=== PATIENT | male | born 1965 | race Caucasian/White ===

== ENCOUNTER 2018-05-19 11:42 | Inpatient (IN) | payer BC, OTHER ==
--- NOTE | 2018-05-19 12:09 | ED PDOC ---
HPI: Back Time Seen by Provider: 05/19/18 12:07 Chief Complaint (Provider): back pain History Per: Patient Additional Complaint(s): 52-year-old male presents to emergency department for evaluation of persistent lower back pain. Patient was diagnosed with lumbar discitis and osteomyelitis several weeks ago and was started on IV antibiotics via PICC line. He presents today with worsening pain. Patient last received dose of IV antibiotics this morning. He rates current pain as a 9 out of 10, worse with movement, better with rest. He denies bowel or bladder dysfunction. Patient takes gabapentin daily but this has provided minimal relief of ongoing pain. PMD: Dr. Alberto Tran Past Medical History Reviewed: Historical Data, Nursing Documentation, Vital Signs - Medical History PMH: Back Problems - Surgical History Surgical History: Appendectomy - Family History Family History: States: No Known Family Hx - Living Arrangements Living Arrangements: With Family - Social History Current smoker - smoking cessation education provided: No Alcohol: None Drugs: Denies - Home Medications Home Medications: Ambulatory Orders Medication Instructions Recorded Calcium Carbonate [Caltrate] 1 tab PO BID 05/19/18 Docusate [Colace] 100 mg PO TID 05/19/18 Gabapentin [Neurontin] 300 mg PO Q12 05/19/18 Glucosa Saab 2Kcl/Chondroitin Saab 1 cap PO BID 05/19/18 [Glucosamine & Chondroitin Cap] Lactobacillus Combination No.8 1 cap PO DAILY 05/19/18 [Adult Probiotic] Multivitamin [Multi-Vitamin Daily] 1 tab PO DAILY 05/19/18 Joffre-3 Fatty Acids [Joffre-3] 1 cap PO BID 05/19/18 Vit A/Vit C/Vit E/Zinc/Copper 1 cap PO DAILY 05/19/18 [Preservision Areds Softgel] Vitamin B Complex [Super B-50 1 cap PO DAILY 05/19/18 Complex] - Allergies Allergies/Adverse Reactions: Allergies Allergy/AdvReac Type Severity Reaction Status Date / Time No Known Allergies Allergy Verified 05/19/18 12:27 Review of Systems ROS Statement: Except As Marked, All Systems Reviewed And Found Negative Constitutional: Negative for: Fever, Chills Cardiovascular: Negative for: Chest Pain Respiratory: Negative for: Cough Gastrointestinal: Negative for: Nausea, Vomiting Genitourinary Male: Negative for: Dysuria, Frequency, Incontinence, Hematuria Musculoskeletal: Positive for: Back Pain Physical Exam - Reviewed Nursing Documentation Reviewed: Yes Vital Signs Reviewed: Yes - Physical Exam Appears: Positive for: Well, Non-toxic, No Acute Distress Skin: Positive for: Normal Color. Negative for: Rash Eye Exam: Positive for: Normal appearance Cardiovascular/Chest: Positive for: Regular Rate, Rhythm Respiratory: Positive for: Normal Breath Sounds. Negative for: Respiratory Distress Gastrointestinal/Abdominal: Positive for: Soft. Negative for: Tenderness Back: Positive for: Vertebral Tenderness (moderate tenderness to midline of lumbar spine) Extremity: Positive for: Normal ROM Neurologic/Psych: Positive for: Alert, Oriented, Gait - Laboratory Results Result Diagrams: 05/19/18 13:16 05/19/18 13:16 - ECG Interpretation Of ECG: Normal sinus rhythm 85 beats per minute, no acute finding, reviewed by PA in ED attending O2 Sat by Pulse Oximetry: 98 Pulse Ox Interpretation: Normal - Other Rad CXR X-Ray: Interpreted by Me, Viewed By Me X-Ray Interpretation: no acute finding Medical Decision Making Medical Decision Makin52 year old with back pain and lumbar discitis Plan: CBC CMP UA EKG CXR IVF IV toradol Patient with intractable back pain, lumbar discitis and osteomyelitis. Plan is to admit patient for intractable pain and obtain neurosurgery consult with Dr. Fitzpatrick. Patient agrees with plan. Dr. Triana to admit patient. Disposition - Clinical Impression Clinical Impression: Intractable back pain, Osteomyelitis of lumbar vertebra, Lumbar discitis - Patient ED Disposition Is Patient to be Admitted: Yes - Disposition Disposition Time: 17:28 Condition: FAIR - Pt Status Changed To: Hospital Disposition Of: Inpatient - Admit Certification Admit to Inpatient:: After my assessment, the patient will require hospitalization for at least two midnights. This is because of the severity of symptoms shown, intensity of services needed, and/or the medical risk in this patient being treated as an outpatient. - POA Present On Arrival: None Results - Lab Results Lab Results: 05/19/18 05/19/18 05/19/18 13:58 13:48 13:45 WBC RBC Hgb Hct MCV MCH MCHC RDW Plt Count MPV Neut % (Auto) Lymph % (Auto) [place] % (Auto) Eos % (Auto) Baso % (Auto) Neut # (Auto) Lymph # (Auto) [place] # (Auto) Eos # (Auto) Baso # (Auto) PT INR APTT Sodium Potassium Chloride Carbon Dioxide Anion Gap BUN Creatinine Est GFR ( Amer) Est GFR (Non-Af Amer) Random Glucose Calcium Total Bilirubin AST ALT Alkaline Phosphatase Total Protein Albumin Globulin Albumin/Globulin Ratio Urine Color Straw Urine Clarity Clear Urine pH 7.0 Ur Specific [place] 1.008 Urine Protein 30 Urine Glucose (UA) Neg Urine Ketones Negative Urine Blood Negative Urine Nitrate Negative Urine Bilirubin Negative Urine Urobilinogen 0.2-1.0 Ur Leukocyte Esterase Neg Urine RBC (Auto) 2 Urine Microscopic WBC < 1 Urine Bacteria Few H Blood Type A POSITIVE Blood Type Confirm A POSITIVE Antibody Screen Negative BBK History Checked No verified bt 05/19/18 05/19/18 05/19/18 13:16 13:16 13:16 WBC 8.2 RBC 4.83 Hgb 14.1 Hct 42.8 MCV 88.5 MCH 29.2 MCHC 33.0 RDW 14.9 H Plt Count 234 MPV 8.7 Neut % (Auto) 75.0 Lymph % (Auto) 11.8 L [place] % (Auto) 10.7 H Eos % (Auto) 1.8 Baso % (Auto) 0.7 Neut # (Auto) 6.1 Lymph # (Auto) 1.0 [place] # (Auto) 0.9 H Eos # (Auto) 0.1 Baso # (Auto) 0.1 PT 13.8 H INR 1.2 APTT 40.1 H Sodium 139 Potassium 4.1 Chloride 101 Carbon Dioxide 28 Anion Gap 14 BUN 12 Creatinine 0.8 Est GFR ( Amer) > 60 Est GFR (Non-Af Amer) > 60 Random Glucose 87 Calcium 9.0 Total Bilirubin 0.7 AST 43 ALT 47 Alkaline Phosphatase 85 Total Protein 7.4 Albumin 4.2 Globulin 3.2 Albumin/Globulin Ratio 1.3 Urine Color Urine Clarity Urine pH Ur Specific [place] Urine Protein Urine Glucose (UA) Urine Ketones Urine Blood Urine Nitrate Urine Bilirubin Urine Urobilinogen Ur Leukocyte Esterase Urine RBC (Auto) Urine Microscopic WBC Urine Bacteria Blood Type Blood Type Confirm Antibody Screen BBK History Checked
[2018-05-19 12:14] VITALS: BMI 23.1
[2018-05-19] MEDS ORDERED: Sodium Chloride 0.9% 1,000 ML IV STA (12:15)
[2018-05-19 13:21] LABS: BASO # 0.1 K/uL (0.0-0.2); BASO % 0.7 % (0.0-2.0); EOS # 0.1 K/uL (0.0-0.7); EOS % 1.8 % (0.0-4.0); HEMOGLOBIN 14.1 g/dL (12.0-18.0); LYMPH % 11.8 % (20.0-40.0); MEAN CELL VOLUME 88.5 fl (80.0-94.0); MEAN CORPUSCULAR HEMOGLOBIN 29.2 pg (27.0-31.0); MEAN PLATELET VOLUME 8.7 fl (7.2-11.7); MONO # 0.9 K/uL (0.0-0.8); MONO % 10.7 % (0.0-10.0); NEUT # 6.1 K/uL (1.8-7.0); NRBC % 0.1 % (0.0-0.0); RBC 4.83 Mil/uL (4.40-5.90); RED CELL DISTRIBUTION WIDTH 14.9 % (11.5-14.5); WHITE BLOOD COUNT 8.2 K/uL (4.8-10.8)
[2018-05-19 13:36] LABS: ALB/GLOB RATIO 1.3 (1.0-2.1); ALBUMIN 4.2 g/dL (3.5-5.0); ALT/SGPT 47 U/L (21-72); AST/SGOT 43 U/L (17-59); BLOOD UREA NITROGEN 12 mg/dl (9-20); GFR AFRICAN-AMERICAN > 60; GFR NON-AFRICAN AMERICAN > 60
[2018-05-19 13:39] LABS: INR 1.2 (0.9-1.2); PARTIAL THROMBOPLASTIN TIME 40.1 Seconds (25.6-37.1); PROTHROMBIN TIME 13.8 Seconds (9.8-13.1)
--- NOTE | 2018-05-19 13:56 | RAD ---
HISTORY: clearance COMPARISON: No prior. FINDINGS: LUNGS: No active pulmonary disease. PLEURA: No significant pleural effusion identified, no pneumothorax apparent. CARDIOVASCULAR: No radiographic findings to suggest acute or significant cardiovascular disease. OSSEOUS STRUCTURES: No significant abnormalities. VISUALIZED UPPER ABDOMEN: Normal. OTHER FINDINGS: None. IMPRESSION: No active disease.
[2018-05-19 14:03] LABS: URINE BACTERIA FEW (<OCC); URINE BILIRUBIN NEGATIVE (NEGATIVE); URINE BLOOD NEGATIVE (NEGATIVE); URINE CLARITY CLEAR (Clear); URINE COLOR STRAW (YELLOW); URINE GLUCOSE (UA) NEG (Normal); URINE LEUKOCYTE ESTERASE NEG Leu/uL (Negative); URINE PROTEIN 30 mg/dL (NEGATIVE); URINE UROBILINOGEN 0.2-1.0 mg/dL (0.2-1.0)
--- NOTE | 2018-05-19 18:47 | CP.PCM.HP ---
<Minerva Jarvis - Last Filed: 05/19/18 20:05> History of Present Illness - History of Present Illness History of Present Illness: 52 yr old M presented to ED with complaint of persistent lumbar pain in the setting of osteomyelitis, epidural abscess, lumbar discitis. No other significant PMHx. Patient reports lumbar pain is 9/10, exacerbated by movement; alleviated by rest and gabapentin. Physical therapy did not provide relief. Patient has a PICC line and has been receiving IV antibiotics, ID is Dr. Head. Denies urinary or fecal incontinence. Denies need of assistive device to ambulate. Denies fevers, chills, weight loss, chest pain or SOB. PMD: Dr. Alberto Tran ID: Dr. Head PMHx: denies SurgHx: appendicitis, diverticulitis, nasal abscess drainage, tonsillectomy FMHx: noncontributory SocHx: denies tobacco/Etoh or drugs Medications: Gabapentin 300mg PO BID, OTC anti-inflammatory medications Allergies: NKDA ED course: BP 146/89 mmHg, HR 81, Resp 18, O2 sat 100% on room air, Temp 97.6F -EKG: NSR at 85 bpm -CXR: no active disease -CBC within normal limits -PT 13.8, INR 1.2, PTT 40.1 -CMP within normal limits -Urinalysis negative -ED treatment: Toradol 30mg IVP once, 1L NS bolus, Present on Admission - Present on Admission Any Indicators Present on Admission: No History of DVT/PE: No History of Uncontrolled Diabetes: No Urinary Catheter: No Decubitus Ulcer Present: No History Surgical Site Infection Following: None Review of Systems - Constitutional Constitutional: absent: Chills, Weakness - EENT Eyes: absent: Change in Vision Nose/Mouth/Throat: absent: Nasal Congestion, Nasal Discharge - Cardiovascular Cardiovascular: absent: Chest Pain, Dyspnea, Pedal Edema, Rapid Heart Rate - Respiratory Respiratory: absent: Cough, Dyspnea, Hemoptysis - Gastrointestinal Gastrointestinal: absent: Abdominal Pain, Diarrhea, Nausea, Vomiting - Genitourinary Genitourinary: absent: Change in Urinary Stream, Difficulty Urinating, Dysuria - Musculoskeletal Musculoskeletal: Back Pain. absent: Neck Pain, Stiffness - Integumentary Integumentary: absent: Bleeding Lesions - Neurological Neurological: absent: Confusion, Disequilibrium, Dizziness - Psychiatric Psychiatric: absent: Homicidal Ideation, Suicidal Ideation - Endocrine Endocrine: absent: Polydipsia, Polyphagia, Polyuria - Hematologic/Lymphatic Hematologic: absent: Easy Bleeding, Easy Bruising Past Patient History - Infectious Disease Hx of Infectious Diseases: None - Past Medical History & Family History Past Medical History?: No - Past Social History Smoking Status: Never Smoked Alcohol: None Drugs: Denies - CARDIAC Hx Cardiac Disorders: No - NEUROLOGICAL Hx Neurological Disorder: No - HEENT Hx Blind: No - RENAL Hx Chronic Kidney Disease: No - ENDOCRINE/METABOLIC Hx Endocrine Disorders: No - HEMATOLOGICAL/ONCOLOGICAL Hx Blood Disorders: No - INTEGUMENTARY Hx Dermatological Problems: No - MUSCULOSKELETAL/RHEUMATOLOGICAL Hx Back Pain: Yes Hx Falls: No Hx Osteomyelitis: Yes - GASTROINTESTINAL Hx Diverticulitis: Yes (HAD SURGRY 20YRS AGO) - GENITOURINARY/GYNECOLOGICAL Hx Genitourinary Disorders: No - PSYCHIATRIC Hx Psychophysiologic Disorder: No Hx Substance Use: No - SURGICAL HISTORY Hx Appendectomy: Yes - ANESTHESIA Hx Anesthesia: Yes Hx Anesthesia Reactions: No Hx Malignant Hyperthermia: No Meds Allergies/Adverse Reactions: Allergies Allergy/AdvReac Type Severity Reaction Status Date / Time No Known Allergies Allergy Verified 05/19/18 12:27 Physical Exam - Constitutional Appears: No Acute Distress - Head Exam Head Exam: ATRAUMATIC, NORMOCEPHALIC - Eye Exam Eye Exam: EOMI, PERRL - ENT Exam ENT Exam: Mucous Membranes Moist - Neck Exam Neck exam: Positive for: Full Rom. Negative for: Lymphadenopathy - Respiratory Exam Respiratory Exam: Clear to Auscultation Bilateral, NORMAL BREATHING PATTERN - Cardiovascular Exam Cardiovascular Exam: REGULAR RHYTHM, +S1, +S2 - GI/Abdominal Exam GI & Abdominal Exam: Normal Bowel Sounds, Soft. absent: Tenderness - Extremities Exam Extremities exam: Positive for: full ROM (PICC line in RUE, dressing clean/dry/ intact), normal capillary refill, pedal pulses present. Negative for: calf tenderness, pedal edema - Back Exam Back exam: tenderness (lumbar spine). absent: CVA tenderness (L), CVA tenderness (R) - Neurological Exam Neurological exam: Alert, CN II-XII Intact, Oriented x3 - Psychiatric Exam Psychiatric exam: Normal Affect, Normal Mood - Skin Skin Exam: Dry, Intact, Normal Color, Warm Results - Vital Signs Recent Vital Signs: Last Vital Signs Temp 97.9 F 05/19/18 16:59 Pulse 63 05/19/18 16:59 Resp 18 05/19/18 16:59 BP 141/91 H 05/19/18 16:59 Pulse Ox 98 05/19/18 17:30 - Labs Result Diagrams: 05/19/18 13:16 05/19/18 13:16 Labs: Laboratory Results - last 24 hr 05/19/18 05/19/18 05/19/18 13:16 13:16 13:16 WBC 8.2 RBC 4.83 Hgb 14.1 Hct 42.8 MCV 88.5 MCH 29.2 MCHC 33.0 RDW 14.9 H Plt Count 234 MPV 8.7 Neut % (Auto) 75.0 Lymph % (Auto) 11.8 L [place] % (Auto) 10.7 H Eos % (Auto) 1.8 Baso % (Auto) 0.7 Neut # (Auto) 6.1 Lymph # (Auto) 1.0 [place] # (Auto) 0.9 H Eos # (Auto) 0.1 Baso # (Auto) 0.1 PT 13.8 H INR 1.2 APTT 40.1 H Sodium 139 Potassium 4.1 Chloride 101 Carbon Dioxide 28 Anion Gap 14 BUN 12 Creatinine 0.8 Est GFR ( Amer) > 60 Est GFR (Non-Af Amer) > 60 Random Glucose 87 Calcium 9.0 Total Bilirubin 0.7 AST 43 ALT 47 Alkaline Phosphatase 85 Total Protein 7.4 Albumin 4.2 Globulin 3.2 Albumin/Globulin Ratio 1.3 Urine Color Urine Clarity Urine pH Ur Specific [place] Urine Protein Urine Glucose (UA) Urine Ketones Urine Blood Urine Nitrate Urine Bilirubin Urine Urobilinogen Ur Leukocyte Esterase Urine RBC (Auto) Urine Microscopic WBC Urine Bacteria Blood Type Blood Type Confirm Antibody Screen BBK History Checked 05/19/18 05/19/18 05/19/18 13:45 13:48 13:58 WBC RBC Hgb Hct MCV MCH MCHC RDW Plt Count MPV Neut % (Auto) Lymph % (Auto) [place] % (Auto) Eos % (Auto) Baso % (Auto) Neut # (Auto) Lymph # (Auto) [place] # (Auto) Eos # (Auto) Baso # (Auto) PT INR APTT Sodium Potassium Chloride Carbon Dioxide Anion Gap BUN Creatinine Est GFR ( Amer) Est GFR (Non-Af Amer) Random Glucose Calcium Total Bilirubin AST ALT Alkaline Phosphatase Total Protein Albumin Globulin Albumin/Globulin Ratio Urine Color Straw Urine Clarity Clear Urine pH 7.0 Ur Specific [place] 1.008 Urine Protein 30 Urine Glucose (UA) Neg Urine Ketones Negative Urine Blood Negative Urine Nitrate Negative Urine Bilirubin Negative Urine Urobilinogen 0.2-1.0 Ur Leukocyte Esterase Neg Urine RBC (Auto) 2 Urine Microscopic WBC < 1 Urine Bacteria Few H Blood Type A POSITIVE Blood Type Confirm A POSITIVE Antibody Screen Negative BBK History Checked No verified bt Assessment & Plan - Assessment and Plan (Free Text) Assessment: 52 yr old M admitted for intractable lumbar pain in the setting of osteomyelitis , epidural abscess, lumbar discitis. No other significant PMHx. 1. Intractable/Severe lumbar pain -acute on chronic, persistent -has PICC line for tx of osteomyelitis, epidural abscess, lumbar discitis -admit to med/surg -Neurosurgery -Dr. Fitzpatrick: will follow recommendations, likely for OR tomorrow -ID: Dr. Head: will follow recommendations -NPO after midnight -pain management 2. DVT prophylaxis -SCD's for now - Date & Time Date: 05/19/18 Time: 15:00 <Toni Triana - Last Filed: 05/19/18 21:36> Results - Vital Signs Recent Vital Signs: Last Vital Signs Temp 97.9 F 05/19/18 16:59 Pulse 63 05/19/18 16:59 Resp 18 05/19/18 16:59 BP 141/91 H 05/19/18 16:59 Pulse Ox 98 05/19/18 17:30 - Labs Result Diagrams: 05/19/18 13:16 05/19/18 13:16 Labs: Laboratory Results - last 24 hr 05/19/18 05/19/18 05/19/18 13:16 13:16 13:16 WBC 8.2 RBC 4.83 Hgb 14.1 Hct 42.8 MCV 88.5 MCH 29.2 MCHC 33.0 RDW 14.9 H Plt Count 234 MPV 8.7 Neut % (Auto) 75.0 Lymph % (Auto) 11.8 L [place] % (Auto) 10.7 H Eos % (Auto) 1.8 Baso % (Auto) 0.7 Neut # (Auto) 6.1 Lymph # (Auto) 1.0 [place] # (Auto) 0.9 H Eos # (Auto) 0.1 Baso # (Auto) 0.1 PT 13.8 H INR 1.2 APTT 40.1 H Sodium 139 Potassium 4.1 Chloride 101 Carbon Dioxide 28 Anion Gap 14 BUN 12 Creatinine 0.8 Est GFR ( Amer) > 60 Est GFR (Non-Af Amer) > 60 Random Glucose 87 Calcium 9.0 Total Bilirubin 0.7 AST 43 ALT 47 Alkaline Phosphatase 85 Total Protein 7.4 Albumin 4.2 Globulin 3.2 Albumin/Globulin Ratio 1.3 Urine Color Urine Clarity Urine pH Ur Specific [place] Urine Protein Urine Glucose (UA) Urine Ketones Urine Blood Urine Nitrate Urine Bilirubin Urine Urobilinogen Ur Leukocyte Esterase Urine RBC (Auto) Urine Microscopic WBC Urine Bacteria Blood Type Blood Type Confirm Antibody Screen BBK History Checked 05/19/18 05/19/18 05/19/18 13:45 13:48 13:58 WBC RBC Hgb Hct MCV MCH MCHC RDW Plt Count MPV Neut % (Auto) Lymph % (Auto) [place] % (Auto) Eos % (Auto) Baso % (Auto) Neut # (Auto) Lymph # (Auto) [place] # (Auto) Eos # (Auto) Baso # (Auto) PT INR APTT Sodium Potassium Chloride Carbon Dioxide Anion Gap BUN Creatinine Est GFR ( Amer) Est GFR (Non-Af Amer) Random Glucose Calcium Total Bilirubin AST ALT Alkaline Phosphatase Total Protein Albumin Globulin Albumin/Globulin Ratio Urine Color Straw Urine Clarity Clear Urine pH 7.0 Ur Specific [place] 1.008 Urine Protein 30 Urine Glucose (UA) Neg Urine Ketones Negative Urine Blood Negative Urine Nitrate Negative Urine Bilirubin Negative Urine Urobilinogen 0.2-1.0 Ur Leukocyte Esterase Neg Urine RBC (Auto) 2 Urine Microscopic WBC < 1 Urine Bacteria Few H Blood Type A POSITIVE Blood Type Confirm A POSITIVE Antibody Screen Negative BBK History Checked No verified bt Assessment & Plan - Assessment and Plan (Free Text) Plan: Discussed with DR Matheus lee plans of care and mgt. Toni Triana M.D.
[2018-05-20] MEDS ORDERED: Propofol 10 mg/ml Inj (20 ML) ONE (07:05)
[2018-05-20] MEDS ORDERED: Midazolam 2 MG/2 ML VIAL ONE (07:05)
[2018-05-20] MEDS ORDERED: Succinylcholine 200 mg/10 ml Inj IV ONE (07:08)
[2018-05-20] MEDS ORDERED: Lidocaine 4% MPF 5 ML IJ ONE (07:10)
[2018-05-20] MEDS ORDERED: Dexamethasone 4 mg/1 ml ONE ×2 (07:10→08:42)
[2018-05-20] MEDS ORDERED: Bupivacaine HCl 0.25% PF (30 ml) Inj ONE (07:13)
[2018-05-20] MEDS ORDERED: Absorbable Gelatin Sponge Size 12-7 ONE (07:13)
[2018-05-20] MEDS ORDERED: ceFAZolin IV 2 gm in Dextrose 2 GM/50 ML BAG IVPB ONE (07:13)
[2018-05-20] MEDS ORDERED: GELATIN SPONGE,ABSORB/PORCINE 1 EACH SPONGE TP ONE (07:14)
[2018-05-20] MEDS ORDERED: Rocuronium 10 mg/ml (5 ml) ONE ×2 (07:14→07:59)
[2018-05-20] MEDS ORDERED: Thrombin Topical 5,000 Int Units Spray Kit ONE (07:14)
[2018-05-20] MEDS ORDERED: ePHEDrine 50 mg/ml Inj ONE (07:15)
[2018-05-20] MEDS ORDERED: Phenylephrine 10 mg/ml Inj ONE (07:17)
--- NOTE | 2018-05-20 07:26 | CP.PCM.CON ---
History of Present Illness - History of Present Illness History of Present Illness: 52 y/o male with PMhx of L2-L3 osteomyelitis, discitis with epidural abscess s/ p treatment with IV abx. s/p 7 weeks of abx treatment who presents with chronic LBP and radiculopathy. Although the patient admits to improvement of his acute back pain as a consequence of his osteo/discitis, he now has chronic LBP and is exacerbated with movement and position transfers. He has failed conservative management such as pain meds and PT. At this time he does not use an assistive device but his ambulation ability is limited. Denies urinary or bowel incontinence. Past Patient History - Infectious Disease Hx of Infectious Diseases: None - Past Medical History & Family History Past Medical History?: No - Past Social History Smoking Status: Never Smoked Alcohol: None Drugs: Denies - CARDIAC Hx Cardiac Disorders: No - NEUROLOGICAL Hx Neurological Disorder: No - HEENT Hx Blind: No - RENAL Hx Chronic Kidney Disease: No - ENDOCRINE/METABOLIC Hx Endocrine Disorders: No - HEMATOLOGICAL/ONCOLOGICAL Hx Blood Disorders: No - INTEGUMENTARY Hx Dermatological Problems: No - MUSCULOSKELETAL/RHEUMATOLOGICAL Hx Back Pain: Yes Hx Falls: No Hx Osteomyelitis: Yes - GASTROINTESTINAL Hx Diverticulitis: Yes (HAD SURGRY 20YRS AGO) - GENITOURINARY/GYNECOLOGICAL Hx Genitourinary Disorders: No - PSYCHIATRIC Hx Psychophysiologic Disorder: No Hx Substance Use: No - SURGICAL HISTORY Hx Appendectomy: Yes - ANESTHESIA Hx Anesthesia: Yes Hx Anesthesia Reactions: No Hx Malignant Hyperthermia: No Meds Allergies/Adverse Reactions: Allergies Allergy/AdvReac Type Severity Reaction Status Date / Time No Known Allergies Allergy Verified 05/19/18 12:27 - Medications Medications: Current Medications Gabapentin (Neurontin) 300 mg PO BID [place] Ketorolac Tromethamine (Toradol) 30 mg IVP Q6 PRN PRN Reason: Pain, severe (8-10) Physical Exam - Back Exam Back exam: paraspinal tenderness (~ L2-L4 area tenderness ( mild) ) - Neurological Exam Additional comments: well appearing A&Ox 3 CN intact MURRAY Motor 5/5 throughout, however IP is 4/5 limited by pain sensation intact to LT BL pain ilicited with bed transfers. neg clonus positive SLR BL Results - Vital Signs Recent Vital Signs: Last Vital Signs Temp 97.5 F L 05/20/18 00:03 Pulse 83 05/20/18 00:03 Resp 19 05/20/18 00:03 BP 136/72 05/20/18 00:03 Pulse Ox 99 05/20/18 00:03 - Labs Result Diagrams: 05/19/18 13:16 05/19/18 13:16 Labs: Laboratory Results - last 24 hr 05/19/18 05/19/18 05/19/18 13:16 13:16 13:16 WBC 8.2 RBC 4.83 Hgb 14.1 Hct 42.8 MCV 88.5 MCH 29.2 MCHC 33.0 RDW 14.9 H Plt Count 234 MPV 8.7 Neut % (Auto) 75.0 Lymph % (Auto) 11.8 L [place] % (Auto) 10.7 H Eos % (Auto) 1.8 Baso % (Auto) 0.7 Neut # (Auto) 6.1 Lymph # (Auto) 1.0 [place] # (Auto) 0.9 H Eos # (Auto) 0.1 Baso # (Auto) 0.1 PT 13.8 H INR 1.2 APTT 40.1 H Sodium 139 Potassium 4.1 Chloride 101 Carbon Dioxide 28 Anion Gap 14 BUN 12 Creatinine 0.8 Est GFR ( Amer) > 60 Est GFR (Non-Af Amer) > 60 Random Glucose 87 Calcium 9.0 Total Bilirubin 0.7 AST 43 ALT 47 Alkaline Phosphatase 85 Total Protein 7.4 Albumin 4.2 Globulin 3.2 Albumin/Globulin Ratio 1.3 Urine Color Urine Clarity Urine pH Ur Specific [place] Urine Protein Urine Glucose (UA) Urine Ketones Urine Blood Urine Nitrate Urine Bilirubin Urine Urobilinogen Ur Leukocyte Esterase Urine RBC (Auto) Urine Microscopic WBC Urine Bacteria Blood Type Blood Type Confirm Antibody Screen BBK History Checked 05/19/18 05/19/18 05/19/18 13:45 13:48 13:58 WBC RBC Hgb Hct MCV MCH MCHC RDW Plt Count MPV Neut % (Auto) Lymph % (Auto) [place] % (Auto) Eos % (Auto) Baso % (Auto) Neut # (Auto) Lymph # (Auto) [place] # (Auto) Eos # (Auto) Baso # (Auto) PT INR APTT Sodium Potassium Chloride Carbon Dioxide Anion Gap BUN Creatinine Est GFR ( Amer) Est GFR (Non-Af Amer) Random Glucose Calcium Total Bilirubin AST ALT Alkaline Phosphatase Total Protein Albumin Globulin Albumin/Globulin Ratio Urine Color Straw Urine Clarity Clear Urine pH 7.0 Ur Specific [place] 1.008 Urine Protein 30 Urine Glucose (UA) Neg Urine Ketones Negative Urine Blood Negative Urine Nitrate Negative Urine Bilirubin Negative Urine Urobilinogen 0.2-1.0 Ur Leukocyte Esterase Neg Urine RBC (Auto) 2 Urine Microscopic WBC < 1 Urine Bacteria Few H Blood Type A POSITIVE Blood Type Confirm A POSITIVE Antibody Screen Negative BBK History Checked No verified bt Assessment & Plan - Assessment and Plan (Free Text) Assessment: chronic intractable LBP Plan: With Dr. Fitzpatrick, Surgical options reviewed with patient and recommended L2-L3 PSF Risks, benefits and alternatives explained. Risks such as infection, hemorrhage, CSF leak, weakness, numbness, failure of surgery and/or need for further surgery explained. Patient's questioned answered and expressed understanding and wishes to proceed.
[2018-05-20] MEDS ORDERED: Lactated Ringer's 1,000 ML IV ONE ×2 (07:38→09:00)
[2018-05-20] MEDS ORDERED: HEMOSTATIC MATRIX 10 ML DIS.NEEDLE TOP ONE (08:05)
[2018-05-20] MEDS ORDERED: Neostigmine 1:1000 (1 mg/ml) Inj ONE (08:32)
[2018-05-20] MEDS ORDERED: Thrombin Topical 5,000 Int Units Spray Kit TOP ONE (08:45)
[2018-05-20] MEDS ORDERED: Absorbable Gelatin Sponge Size 12-7 TP ONE (08:45)
[2018-05-20] MEDS ORDERED: Bupivacaine 0.25% Inj(30mL) IJ ONE ×2 (09:06→09:30)
--- NOTE | 2018-05-20 09:39 | CARD ---
APPROVED REPORT EKG Measurement Heart [id number] <Conclusion> Normal sinus rhythm with sinus arrhythmia Possible Left atrial enlargement Low voltage QRS Borderline ECG
--- NOTE | 2018-05-20 09:48 | PCM.SURG1 ---
Surgeon's Initial Post Op Note - Surgeon's Notes Surgeon: Dr. Frantz Fitzpatrick MD Vacuum Cleaner Operator: Vaughn DESIR , Patrice DESIR Type of Anesthesia: General Endo Pre-Operative Diagnosis: L2-L3 osteo/discitis s/p abx tx course with chronic LBP. lumbar stenosis, disc collapse Operative Findings: as above Post-Operative Diagnosis: same Operation Performed: L2-L3 posterior instrumented fusion, distraction and decomressive laminectomy . Specimen/Specimens Removed: L2-L3 lamina, ligamentum flavum. Cultures +/-, AFB sent from epidural space Estimated Blood Loss: EBL {In ML}: 70 Blood Products Given: N/A Drains Used: Stephen Gutierrez (x2) Date of Surgery/Procedure: 05/20/18 Time of Surgery/Procedure: 10:00
[2018-05-20] MEDS ORDERED: Sodium Chloride 0.9% 1,000 ML IV PRN (09:56)
[2018-05-20] MEDS ORDERED: HYDROmorphone 0.5 mg/0.5 ml ISec IVP PRN (10:04)
[2018-05-20] MEDS ORDERED: oxyCODONE 5 mg Immediate Release Tab PO PRN (10:07)
[2018-05-20] MEDS: HYDROmorphone 0.5 mg/0.5 ml ISec IVP PRN ×3 (10:30→15:05)
--- NOTE | 2018-05-20 10:31 | OP ---
PROCEDURE DATE: 05/20/2018 PREOPERATIVE DIAGNOSES: Lumbar spine diskitis, osteomyelitis, epidural abscess, spondylolisthesis and spinal instability at L2-L3. POSTOPERATIVE DIAGNOSES: Lumbar spine diskitis, osteomyelitis, epidural abscess, spondylolisthesis and spinal instability at L2-L3. PROCEDURES: L2-L3 lumbar laminectomy, biopsy of the disk space and L2-L3 pedicle screw fixation and instrumentation using a spinal element system, L2-L3 posterolateral fusion. Fluoroscopy has been used. SURGEON: Frantz Fitzpatrick MD MUSEUM PREPARATOR: KARLEE Chavira. Vaughn Rosario stayed throughout the case from the beginning to the end, helped me perform the surgery. DESCRIPTION OF PROCEDURE: The patient was brought to the operating room, anesthetized with general endotracheal anesthesia, and placed in a prone position on a Stephen table. Care was taken to protect all the pressure points. Back of the lumbar area thoroughly prepped and draped in same sterile manner after marking the skin incisions for lumbar laminectomy and fusion at L2-L3. After prepping and draping area, skin has been incised, bleeding skin had been controlled with bipolar general passenger agent. Using a Bovie general passenger agent, paraspinal muscles have been detached, attachments of spinous process and lamina of L2-L3. At this point, identification of levels has been done with the help of fluoroscopy by using a traditional landmark, point of entry has been noted for the pedicle screws at L2 and L3. Initially K-wire, later a drill has been used in order to enter the pedicles of L2-L3. Polyaxial titanium screws of spinal elements have been placed. Titanium rods have been placed and cap nuts have been used in order to secure them. Slight traction has been applied and all this has been done with the help of fluoroscopy. After this, under magnification, the lamina of the spinous process of L2-L3 had been removed. By using a high speed drill, lamina of L2-L3 have been drilled to actual thickness. By using a fine Kerrison punch, thinned out the lamina, medial part of facets and ligamentum flavum has been removed decompressing this area. At this point, disk space has been examined and part of the disk space biopsied, sent for histopathological examination, and cultures have been taken. After that, the lateral aspect of the facet joint and transverse process have been decorticated and demineralized bone placed in the area achieving a posterolateral fusion. Hemostasis was best achieved. Stephen drain was placed in the wound and brought out through a separate stab neck skin incision. Muscles and fascia were closed with 1 Vicryl, subcutaneous tissue with 3-0 Vicryl, and skin has been Vicryl stitches. The patient tolerated the procedure. After procedure, mobilized to the recovery room in stabilized neurological condition. Frantz Fitzpatrick MD
--- NOTE | 2018-05-20 11:51 | CP.PCM.CON ---
History of Present Illness - History of Present Illness History of Present Illness: 52 yr old M presented to ED with complaint of persistent lumbar pain in the setting of osteomyelitis, epidural abscess, lumbar discitis. He was diagnosed with this at [facility] 2 months ago. IR could not drain abscess and Neurosurg recommended conservative rx He was treated with Vibativ and Rosephin for 8 weeks all cultures were neg as was PPD, TB Quantiferon and echo No other significant PMHx. Patient reports lumbar pain is 9/10, exacerbated by movement; alleviated by rest and gabapentin. Physical therapy did not provide relief. Patient has a PICC line and has been receiving IV antibiotics PMHx: colitis SurgHx: appendicitis, diverticulitis, nasal abscess drainage, tonsillectomy FMHx: noncontributory SocHx: denies tobacco/Etoh or drugs Medications: Gabapentin 300mg PO BID, OTC anti-inflammatory medications Allergies: NKDA Review of Systems - Review of Systems All systems: reviewed and no additional remarkable complaints except - Constitutional Constitutional: As Per HPI - EENT Eyes: absent: As Per HPI, Blind Spots, Blurred Vision, Change in Vision, Decreased Night Vision, Diplopia, Discharge, Dry Eye, Exophthalmos, Floaters, Irritation, Itchy Eyes, Loss of Peripheral Vision, Pain, Photophobia, Requires Corrective Lenses, Sees Flashes, Spots in Vision, Tunnel Vision, Other Visual Disturbances, Loss of Vision, Other Ears: absent: As Per HPI, Decreased Hearing, Ear Discharge, Ear Pain, Tinnitus, Abnormal Hearing, Disequilibrium, Dizziness, Other Nose/Mouth/Throat: absent: As Per HPI, Epistaxis, Nasal Congestion, Nasal Discharge, Nasal Obstruction, Nasal Trauma, Nose Pain, Post Nasal Drip, Sinus Pain, Sinus Pressure, Bleeding Gums, Change in Voice, Dental Pain, Dry Mouth, Dysphagia, Halitosis, Hoarsness, Lip Swelling, Mouth Lesions, Mouth Pain, Odynophagia, Sore Throat, Throat Swelling, Tongue Swelling, Facial Pain, Neck Pain, Neck Mass, Other - Cardiovascular Cardiovascular: absent: As Per HPI, Acrocyanosis, Chest Pain, Chest Pain at Rest , Chest Pain with Activity, Claudication, Diaphoresis, Dyspnea, Dyspnea on Exertion, Edema, Irregular Heart Rhythm, Pain Radiating to Arm/Neck/Jaw, Leg Edema, Leg Ulcers, Lightheadedness, Orthopnea, Palpitations, Paroxysmal Nocturnal Dyspnea, Pedal Edema, Radiating Pain, Rapid Heart Rate, Slow Heart Rate, Syncope, Other - Respiratory Respiratory: absent: As Per HPI, Cough, Dyspnea, Hemoptysis, Dyspnea on Exertion , Wheezing, Snoring, Stridor, Pain on Inspiration, Chest Congestion, Excessive Mucous Production, Change in Mucous Color, Pain with Coughing, Other - Gastrointestinal Gastrointestinal: absent: As Per HPI, Abdominal Pain, Belching, Bloating, Change in Bowel Habits, Change in Stool Character, Coffee Ground Emesis, Constipation, Cramping, Diarrhea, Dyspepsia, Dysphagia, Early Satiety, Excessive Flatus, Fecal Incontinence, Heartburn, Hematemesis, Hematochezia, Loose Stools, Melena, Nausea, Odynophagia, Temesmus, Vomiting, Other - Genitourinary Genitourinary: absent: As Per HPI, Change in Urinary Stream, Difficulty Urinating, Dysuria, Flank Pain, Hematuria, Pyuria, Nocturia, Urinary Incontinence, Urinary Frequency, Urinary Hesitance, Urinary Urgency, Voiding Freq/Small Amts, Freq UTI, Hx Renal/Bladder Calculi, Hx /Renal Surgery, Bladder Distension, Other - Musculoskeletal Musculoskeletal: As Per HPI - Integumentary Integumentary: absent: As Per HPI, Acne, Alopecia, Bleeding Lesions, Change in Hair, Change in Nails, Change in Pigmentation, Changing Lesions, Dry Skin, Erythema, Furuncle, Hirsutism, Lesions, New Lesions, Non-Healing Lesions, Photosensitivity, Pruritus, Rash, Skin Pain, Skin Ulcer, Sores, Striae, Swelling , Unusual Bruising, Wounds, Jaundice, Other - Neurological Neurological: As Per HPI - Psychiatric Psychiatric: absent: As Per HPI, Abnormal Sleep Pattern, Anhedonia, Anxiety, Auditory Hallucinations, Behavioral Changes, Change in Appetite, Change in Libido, Confusion, Depression, Difficulty Concentrating, Hallucinations, Homicidal Ideation, Hopelessness, Irritability, Memory Loss, Mood Swings, Panic Attacks, Paranoia, Suicidal Ideation, Visual Hallucinations, Tactile Hallucinations, Other - Endocrine Endocrine: absent: As Per HPI, Change in Body Appearance, Change in Libido, Cold Intolorance, Deepening of Voice, Excessive Sweating, Fatigue, Flushing, Heat Intolorance, Increase in Ring/Shoe/Hat Size, Palpitations, Polydipsia, Polyphagia, Polyuria, Other - Hematologic/Lymphatic Hematologic: absent: As Per HPI, Easy Bleeding, Easy Bruising, Lymphadenopathy, Other Past Patient History - Infectious Disease Hx of Infectious Diseases: None - Past Medical History & Family History Past Medical History?: No - Past Social History Smoking Status: Never Smoked Alcohol: None Drugs: Denies - CARDIAC Hx Cardiac Disorders: No - NEUROLOGICAL Hx Neurological Disorder: No - HEENT Hx Blind: No - RENAL Hx Chronic Kidney Disease: No - ENDOCRINE/METABOLIC Hx Endocrine Disorders: No - HEMATOLOGICAL/ONCOLOGICAL Hx Blood Disorders: No - INTEGUMENTARY Hx Dermatological Problems: No - MUSCULOSKELETAL/RHEUMATOLOGICAL Hx Back Pain: Yes Hx Falls: No Hx Osteomyelitis: Yes - GASTROINTESTINAL Hx Diverticulitis: Yes (HAD SURGRY 20YRS AGO) - GENITOURINARY/GYNECOLOGICAL Hx Genitourinary Disorders: No - PSYCHIATRIC Hx Psychophysiologic Disorder: No Hx Substance Use: No - SURGICAL HISTORY Hx Appendectomy: Yes - ANESTHESIA Hx Anesthesia: Yes Hx Anesthesia Reactions: No Hx Malignant Hyperthermia: No Meds Allergies/Adverse Reactions: Allergies Allergy/AdvReac Type Severity Reaction Status Date / Time No Known Allergies Allergy Verified 05/19/18 12:27 - Medications Medications: Current Medications Acetaminophen (Tylenol 325mg Tab) 975 mg PO Q6 [facility] Cyclobenzaprine HCl (Flexeril) 5 mg PO TID [facility] Docusate Sodium (Colace) 100 mg PO BID [facility] Gabapentin (Neurontin) 300 mg PO BID [facility] Last Admin: 05/20/18 08:45 Dose: Not Given Hydromorphone HCl (Dilaudid) 0.5 mg IVP Q15M PRN PRN Reason: Pain, moderate (4-7) Stop: 05/21/18 09:57 Last Admin: 05/20/18 10:35 Dose: 0.5 mg Hydromorphone HCl (Dilaudid) 0.5 mg IVP Q6 PRN PRN Reason: Pain, severe (8-10) Sodium Chloride (Sodium Chloride 0.9%) 1,000 mls @ 100 mls/hr IV .Q10H PRN PRN Reason: Hypotension Oxycodone HCl (Oxycodone Immediate Release Tab) 10 mg PO Q4 PRN PRN Reason: Pain, moderate (4-7) Oxycodone HCl (Oxycontin Extended Release Tab) 10 mg PO Q12 [facility] Stop: 05/23/18 21:01 Sennosides (Senokot Tab) 17.2 mg PO HS [facility] Physical Exam - Constitutional Appears: Non-toxic, Chronically Ill - Head Exam Head Exam: NORMOCEPHALIC - Eye Exam Eye Exam: Scleral icterus - ENT Exam ENT Exam: Mucous Membranes Dry - Neck Exam Neck exam: Negative for: Lymphadenopathy - Respiratory Exam Respiratory Exam: Decreased Breath Sounds, Clear to Auscultation Bilateral - Cardiovascular Exam Cardiovascular Exam: REGULAR RHYTHM, +S1, +S2 - GI/Abdominal Exam GI & Abdominal Exam: Diminished Bowel Sounds, Soft. absent: Tenderness - Rectal Exam Rectal Exam: Deferred - Exam Exam: NORMAL INSPECTION - Extremities Exam Extremities exam: Positive for: pedal pulses present. Negative for: pedal edema - Back Exam Back exam: absent: CVA tenderness (L), CVA tenderness (R), paraspinal tenderness - Neurological Exam Neurological exam: Alert, CN II-XII Intact, Oriented x3, Reflexes Normal - Psychiatric Exam Psychiatric exam: Normal Mood - Skin Skin Exam: Dry Results - Vital Signs Recent Vital Signs: Last Vital Signs Temp 97.3 F L 05/20/18 10:20 Pulse 79 05/20/18 11:35 Resp 18 05/20/18 11:35 BP 136/86 05/20/18 11:35 Pulse Ox 100 05/20/18 11:35 - Labs Result Diagrams: 05/19/18 13:16 05/19/18 13:16 Labs: Laboratory Results - last 24 hr 05/19/18 05/19/18 05/19/18 13:16 13:16 13:16 WBC 8.2 RBC 4.83 Hgb 14.1 Hct 42.8 MCV 88.5 MCH 29.2 MCHC 33.0 RDW 14.9 H Plt Count 234 MPV 8.7 Neut % (Auto) 75.0 Lymph % (Auto) 11.8 L Steele % (Auto) 10.7 H Eos % (Auto) 1.8 Baso % (Auto) 0.7 Neut # (Auto) 6.1 Lymph # (Auto) 1.0 Steele # (Auto) 0.9 H Eos # (Auto) 0.1 Baso # (Auto) 0.1 PT 13.8 H INR 1.2 APTT 40.1 H Sodium 139 Potassium 4.1 Chloride 101 Carbon Dioxide 28 Anion Gap 14 BUN 12 Creatinine 0.8 Est GFR ( Amer) > 60 Est GFR (Non-Af Amer) > 60 Random Glucose 87 Calcium 9.0 Total Bilirubin 0.7 AST 43 ALT 47 Alkaline Phosphatase 85 Total Protein 7.4 Albumin 4.2 Globulin 3.2 Albumin/Globulin Ratio 1.3 Urine Color Urine Clarity Urine pH Ur Specific Montgomery Urine Protein Urine Glucose (UA) Urine Ketones Urine Blood Urine Nitrate Urine Bilirubin Urine Urobilinogen Ur Leukocyte Esterase Urine RBC (Auto) Urine Microscopic WBC Urine Bacteria Blood Type Blood Type Confirm Antibody Screen BBK History Checked 05/19/18 05/19/18 05/19/18 13:45 13:48 13:58 WBC RBC Hgb Hct MCV MCH MCHC RDW Plt Count MPV Neut % (Auto) Lymph % (Auto) Steele % (Auto) Eos % (Auto) Baso % (Auto) Neut # (Auto) Lymph # (Auto) Steele # (Auto) Eos # (Auto) Baso # (Auto) PT INR APTT Sodium Potassium Chloride Carbon Dioxide Anion Gap BUN Creatinine Est GFR ( Amer) Est GFR (Non-Af Amer) Random Glucose Calcium Total Bilirubin AST ALT Alkaline Phosphatase Total Protein Albumin Globulin Albumin/Globulin Ratio Urine Color Straw Urine Clarity Clear Urine pH 7.0 Ur Specific Montgomery 1.008 Urine Protein 30 Urine Glucose (UA) Neg Urine Ketones Negative Urine Blood Negative Urine Nitrate Negative Urine Bilirubin Negative Urine Urobilinogen 0.2-1.0 Ur Leukocyte Esterase Neg Urine RBC (Auto) 2 Urine Microscopic WBC < 1 Urine Bacteria Few H Blood Type A POSITIVE Blood Type Confirm A POSITIVE Antibody Screen Negative BBK History Checked No verified bt Assessment & Plan (1) Intractable back pain Status: Acute (2) Lumbar discitis Status: Acute (3) Osteomyelitis of lumbar vertebra Status: Acute - Assessment and Plan (Free Text) Assessment: 52 yo male with diskitis- failed out pt rx with Vanco then Vibativ and Rocephin cultures sent from OR s/p lumbar fusion will cont IV antibiotics and await culture reprts
--- NOTE | 2018-05-20 12:06 | CP.PCM.PN ---
Subjective - Date & Time of Evaluation Date of Evaluation: 05/20/18 Time of Evaluation: 10:00 - Subjective Subjective: Patient seen and examined at bedside in recovery with Dr. Triana. Patient is POD # 0 s/p lumbar fusion, decompression laminectomy. Tolerated procedure well. Objective - Vital Signs/Intake and Output Vital Signs (last 24 hours): Temp Pulse Resp BP Pulse Ox 97.3 F L 79 18 136/86 100 05/20/18 10:20 05/20/18 11:35 05/20/18 11:35 05/20/18 11:35 05/20/18 11:35 Intake and Output: 05/20/18 05/20/18 06:59 18:59 Intake Total 1400 Balance 1400 - Medications Medications: Current Medications Acetaminophen (Tylenol 325mg Tab) 975 mg PO Q6 [facility] Cyclobenzaprine HCl (Flexeril) 5 mg PO TID [facility] Docusate Sodium (Colace) 100 mg PO BID [facility] Gabapentin (Neurontin) 300 mg PO BID [facility] Last Admin: 05/20/18 08:45 Dose: Not Given Hydromorphone HCl (Dilaudid) 0.5 mg IVP Q15M PRN PRN Reason: Pain, moderate (4-7) Stop: 05/21/18 09:57 Last Admin: 05/20/18 10:35 Dose: 0.5 mg Hydromorphone HCl (Dilaudid) 0.5 mg IVP Q6 PRN PRN Reason: Pain, severe (8-10) Sodium Chloride (Sodium Chloride 0.9%) 1,000 mls @ 100 mls/hr IV .Q10H PRN PRN Reason: Hypotension Meropenem 1 gm/ Sodium (Chloride) 100 mls @ 100 mls/hr IVPB Q8 [facility] PRN Reason: Protocol Vancomycin HCl 1 gm/ Sodium (Chloride) 250 mls @ 166.667 mls/hr IVPB Q12 [facility] PRN Reason: Protocol Oxycodone HCl (Oxycodone Immediate Release Tab) 10 mg PO Q4 PRN PRN Reason: Pain, moderate (4-7) Oxycodone HCl (Oxycontin Extended Release Tab) 10 mg PO Q12 [facility] Stop: 05/23/18 21:01 Sennosides (Senokot Tab) 17.2 mg PO HS [facility] - Labs Labs: 05/19/18 13:16 05/19/18 13:16 PT 13.8 Seconds (9.8-13.1) H 05/19/18 13:16 INR 1.2 (0.9-1.2) 05/19/18 13:16 APTT 40.1 Seconds (25.6-37.1) H 05/19/18 13:16 - Constitutional Appears: No Acute Distress - ENT Exam ENT Exam: Mucous Membranes Moist - Respiratory Exam Respiratory Exam: NORMAL BREATHING PATTERN - Cardiovascular Exam Cardiovascular Exam: REGULAR RHYTHM, +S1, +S2 - GI/Abdominal Exam GI & Abdominal Exam: Normal Bowel Sounds - Back Exam Additional comments: [address] - Neurological Exam Neurological Exam: absent: Awake (somnolent s/p surgery) - Skin Skin Exam: Dry, Warm Assessment and Plan - Assessment and Plan (Free Text) Assessment: 52 yr old M is POD # 0 s/p L2-L3 posterior lumbar fusion, decompression laminectomy admitted for intractable lumbar pain in the setting of osteomyelitis , epidural abscess, lumbar discitis. No other significant PMHx. Plan: -pain management -Neurosurgery -Dr. Fitzpatrick: will follow recommendations: will request TLSO brace -has PICC line for tx of osteomyelitis, epidural abscess, lumbar discitis -ID: Dr. Head: will follow recommendations: Meropenem 1 gm Q8 IV, Vancomycin 1gm Q12 IV -advance diet as tolerated -pain management -patient needs IV antibiotics until may 28, if discharged prior may follow up at [facility] for continued treatment (was on Telavancin 750mg IV QD , Rocephin 2gm IV QD)
[2018-05-20] MEDS ORDERED: Meropenem 1 GM in Sodium Chloride 0.9% 100 ML IVPB SCH (12:15)
--- NOTE | 2018-05-20 12:55 | RAD ---
PROCEDURE: HISTORY: As Above COMPARISON: None TECHNIQUE: Total fluoroscopic time utilized during the procedure: 27.9 seconds. Total dose 5.63 mGy cm squared FINDINGS: Submitted images from the current procedure: 1 Please refer to the physician's notes performing the procedure. IMPRESSION: Less than 1 hour fluoroscopic time utilized during performance of the procedure
[2018-05-20] MEDS: Meropenem 1 GM in Sodium Chloride 0.9% 100 ML IVPB SCH (21:30)
[2018-05-20] MEDS: oxyCODONE 10 mg ER Tab (oxyCONTIN) PO SCH (22:55)
[2018-05-21] MEDS: Meropenem 1 GM in Sodium Chloride 0.9% 100 ML IVPB SCH ×3 (05:46→20:06)
[2018-05-21 09:12] LABS: HEMOGLOBIN 13.4 g/dL (12.0-18.0); MEAN CELL VOLUME 88.7 fl (80.0-94.0); MEAN CORPUSCULAR HEMOGLOBIN 29.1 pg (27.0-31.0); MEAN CORPUSCULAR HGB CONC 32.8 g/dL (33.0-37.0); RBC 4.6 Mil/uL (4.40-5.90); RED CELL DISTRIBUTION WIDTH 14.8 % (11.5-14.5); WHITE BLOOD COUNT 11.3 K/uL (4.8-10.8)
[2018-05-21 09:28] LABS: BLOOD UREA NITROGEN 8 mg/dl (9-20); CALCIUM 8.9 mg/dL (8.4-10.2); GFR AFRICAN-AMERICAN > 60; GFR NON-AFRICAN AMERICAN > 60
[2018-05-21] MEDS: oxyCODONE 10 mg ER Tab (oxyCONTIN) PO SCH ×2 (09:30→21:37)
--- NOTE | 2018-05-21 11:56 | CP.PCM.PN ---
Subjective - Date & Time of Evaluation Date of Evaluation: 05/21/18 Time of Evaluation: 10:00 - Subjective Subjective: Patient seen and examined at bedside with Dr. Triana, sitting in chair. Reports moderate discomfort from surgical site/RANDY drain insertion area. Tolerating PO diet, was able to participate in PT. Pain controlled. Objective - Vital Signs/Intake and Output Vital Signs (last 24 hours): Temp Pulse Resp BP Pulse Ox 97.7 F 89 18 159/92 H 98 05/21/18 04:55 05/21/18 11:28 05/21/18 08:00 05/21/18 11:28 05/21/18 11:28 Intake and Output: 05/21/18 05/21/18 06:59 18:59 Intake Total 1050 Output Total 230 Balance 820 - Medications Medications: Current Medications Acetaminophen (Tylenol 325mg Tab) 975 mg PO Q6 [facility] Last Admin: 05/21/18 05:43 Dose: 975 mg Cyclobenzaprine HCl (Flexeril) 5 mg PO TID [facility] Last Admin: 05/21/18 09:32 Dose: 5 mg Docusate Sodium (Colace) 100 mg PO BID [facility] Last Admin: 05/21/18 09:32 Dose: 100 mg Gabapentin (Neurontin) 300 mg PO BID [facility] Last Admin: 05/21/18 09:33 Dose: 300 mg Hydromorphone HCl (Dilaudid) 0.5 mg IVP Q6 PRN PRN Reason: Pain, severe (8-10) Last Admin: 05/21/18 09:31 Dose: 0.5 mg Sodium Chloride (Sodium Chloride 0.9%) 1,000 mls @ 100 mls/hr IV .Q10H PRN PRN Reason: Hypotension Last Admin: 05/20/18 17:47 Dose: 100 mls/hr Vancomycin HCl 1 gm/ Sodium (Chloride) 250 mls @ 166.667 mls/hr IVPB Q12 [facility] PRN Reason: Protocol Last Admin: 05/21/18 10:07 Dose: 166.667 mls/hr Meropenem 1 gm/ Sodium (Chloride) 100 mls @ 100 mls/hr IVPB Q8@0435,1235,2035 [facility] PRN Reason: Protocol Last Admin: 05/21/18 05:46 Dose: 100 mls/hr Oxycodone HCl (Oxycodone Immediate Release Tab) 10 mg PO Q4 PRN PRN Reason: Pain, moderate (4-7) Oxycodone HCl (Oxycontin Extended Release Tab) 10 mg PO Q12 [facility] Stop: 05/23/18 21:01 Last Admin: 05/21/18 09:30 Dose: 10 mg Sennosides (Senokot Tab) 17.2 mg PO HS [facility] Last Admin: 05/20/18 22:47 Dose: 17.2 mg - Labs Labs: 05/21/18 08:30 05/21/18 08:30 PT 13.8 Seconds (9.8-13.1) H 05/19/18 13:16 INR 1.2 (0.9-1.2) 05/19/18 13:16 APTT 40.1 Seconds (25.6-37.1) H 05/19/18 13:16 - Constitutional Appears: No Acute Distress - Head Exam Head Exam: NORMAL INSPECTION - ENT Exam ENT Exam: Mucous Membranes Moist - Neck Exam Neck Exam: Full ROM. absent: Lymphadenopathy - Respiratory Exam Respiratory Exam: NORMAL BREATHING PATTERN - Cardiovascular Exam Cardiovascular Exam: REGULAR RHYTHM - GI/Abdominal Exam GI & Abdominal Exam: Normal Bowel Sounds - Extremities Exam Extremities Exam: Full ROM - Neurological Exam Neurological Exam: Alert, Awake, CN II-XII Intact (grossly intact), Oriented x3 - Psychiatric Exam Psychiatric exam: Normal Affect, Normal Mood - Skin Skin Exam: Dry, Normal Color, Warm Assessment and Plan - Assessment and Plan (Free Text) Assessment: 52 yr old M is POD # 1 s/p L2-L3 posterior lumbar fusion, decompression laminectomy admitted for intractable lumbar pain in the setting of osteomyelitis , epidural abscess, lumbar discitis. No other significant PMHx. 2 x RANDY drains accumulated 455mL in last 24hrs. Plan: -pain management -Neurosurgery -Dr. Fitzpatrick: will follow recommendations: will request TLSO burkece -has PICC line for tx of osteomyelitis, epidural abscess, lumbar discitis -ID: Dr. Head: will follow recommendations: Meropenem 1 gm Q8 IV, Vancomycin 1gm Q12 IV -regular diet -patient needs IV antibiotics until may 28, if discharged prior may follow up at [facility] for continued treatment (was on Telavancin 750mg IV QD , Rocephin 2gm IV QD) -monitor bilateral RANDY drain output
--- NOTE | 2018-05-21 13:18 | CP.PCM.PN ---
Subjective - Date & Time of Evaluation Date of Evaluation: 05/21/18 Time of Evaluation: 10:45 - Subjective Subjective: Patient seen and examined OOB to chair comfortable. Pain is well controlled. He was able to ambulate OOB with PT without difficulties. No acute events overnight. Objective - Vital Signs/Intake and Output Vital Signs (last 24 hours): Temp Pulse Resp BP Pulse Ox 97.3 F L 86 20 119/82 96 05/21/18 12:00 05/21/18 12:00 05/21/18 12:00 05/21/18 12:00 05/21/18 12:00 Intake and Output: 05/21/18 05/21/18 06:59 18:59 Intake Total 1050 Output Total 230 Balance 820 - Medications Medications: Current Medications Acetaminophen (Tylenol 325mg Tab) 975 mg PO Q6 [facility] Last Admin: 05/21/18 12:51 Dose: 975 mg Cyclobenzaprine HCl (Flexeril) 5 mg PO TID [facility] Last Admin: 05/21/18 12:45 Dose: 5 mg Docusate Sodium (Colace) 100 mg PO BID [facility] Last Admin: 05/21/18 09:32 Dose: 100 mg Gabapentin (Neurontin) 300 mg PO BID [facility] Last Admin: 05/21/18 09:33 Dose: 300 mg Hydromorphone HCl (Dilaudid) 0.5 mg IVP Q6 PRN PRN Reason: Pain, severe (8-10) Last Admin: 05/21/18 09:31 Dose: 0.5 mg Sodium Chloride (Sodium Chloride 0.9%) 1,000 mls @ 100 mls/hr IV .Q10H PRN PRN Reason: Hypotension Last Admin: 05/20/18 17:47 Dose: 100 mls/hr Vancomycin HCl 1 gm/ Sodium (Chloride) 250 mls @ 166.667 mls/hr IVPB Q12 [facility] PRN Reason: Protocol Last Admin: 05/21/18 10:07 Dose: 166.667 mls/hr Meropenem 1 gm/ Sodium (Chloride) 100 mls @ 100 mls/hr IVPB Q8@0435,1235,2035 [facility] PRN Reason: Protocol Last Admin: 05/21/18 12:46 Dose: 100 mls/hr Oxycodone HCl (Oxycodone Immediate Release Tab) 10 mg PO Q4 PRN PRN Reason: Pain, moderate (4-7) Oxycodone HCl (Oxycontin Extended Release Tab) 10 mg PO Q12 [facility] Stop: 05/23/18 21:01 Last Admin: 05/21/18 09:30 Dose: 10 mg Sennosides (Senokot Tab) 17.2 mg PO HS [facility] Last Admin: 05/20/18 22:47 Dose: 17.2 mg - Labs Labs: 05/21/18 08:30 05/21/18 08:30 PT 13.8 Seconds (9.8-13.1) H 05/19/18 13:16 INR 1.2 (0.9-1.2) 05/19/18 13:16 APTT 40.1 Seconds (25.6-37.1) H 05/19/18 13:16 - Back Exam Additional comments: Dressings intact with minimal bloody drainage at drain sites. RANDY drains x 2 with moderate bloody drainage. mild tenderness 2nd to surgery - Neurological Exam Neurological Exam: Alert, Awake, CN II-XII Intact, Oriented x3, Reflexes Normal Assessment and Plan (1) Osteomyelitis of lumbar vertebra Assessment & Plan: POD#1 s/p L2-3 laminotomy and instrumental fusion, following ostemyelitis -PT/OT WBAT -abx as per ID, culture NGTD, will monitor -Awaiting TLSO brace, abd binder for now -monitor drain output, large output over last 24 hrs, will keep until tomorrow/ Friday -discharge planning -above d/w Dr. Fitzpatrick in agreement Status: Acute
[2018-05-22] MEDS: Meropenem 1 GM in Sodium Chloride 0.9% 100 ML IVPB SCH ×2 (05:14→12:22)
[2018-05-22 06:10] LABS: MEAN CORPUSCULAR HEMOGLOBIN 28.9 pg (27.0-31.0); MEAN CORPUSCULAR HGB CONC 32.1 g/dL (33.0-37.0); RBC 4.14 Mil/uL (4.40-5.90)
[2018-05-22 06:36] LABS: BLOOD UREA NITROGEN 10 mg/dl (9-20); CALCIUM 8.8 mg/dL (8.4-10.2); GFR AFRICAN-AMERICAN > 60; GFR NON-AFRICAN AMERICAN > 60
[2018-05-22] MEDS: oxyCODONE 10 mg ER Tab (oxyCONTIN) PO SCH (08:41)
--- NOTE | 2018-05-22 09:33 | CP.PCM.PN ---
Subjective - Date & Time of Evaluation Date of Evaluation: 05/22/18 Time of Evaluation: 09:30 - Subjective Subjective: f/u Dr. Fitzpatrick Patient states pain is controlled, he is walking around room, tolerating PO. Denies numbness tingling. Objective - Vital Signs/Intake and Output Vital Signs (last 24 hours): Temp Pulse Resp BP Pulse Ox 98.4 F 93 H 20 127/81 98 05/22/18 08:00 05/22/18 08:00 05/22/18 08:00 05/22/18 08:00 05/22/18 08:00 Intake and Output: 05/22/18 05/22/18 06:59 18:59 Intake Total 1050 Output Total 75 Balance 975 - Medications Medications: Current Medications Acetaminophen (Tylenol 325mg Tab) 975 mg PO Q6 [facility] Last Admin: 05/22/18 04:15 Dose: 975 mg Cyclobenzaprine HCl (Flexeril) 5 mg PO TID [facility] [place] Last Admin: 05/22/18 08:35 Dose: 5 mg Docusate Sodium (Colace) 100 mg PO BID [facility] [place] Last Admin: 05/22/18 08:34 Dose: 100 mg Gabapentin (Neurontin) 300 mg PO BID [facility] [place] Last Admin: 05/22/18 08:35 Dose: 300 mg Hydromorphone HCl (Dilaudid) 0.5 mg IVP Q6 PRN PRN Reason: Pain, severe (8-10) Last Admin: 05/21/18 09:31 Dose: 0.5 mg Sodium Chloride (Sodium Chloride 0.9%) 1,000 mls @ 100 mls/hr IV .Q10H PRN PRN Reason: Hypotension Last Admin: 05/20/18 17:47 Dose: 100 mls/hr Vancomycin HCl 1 gm/ Sodium (Chloride) 250 mls @ 166.667 mls/hr IVPB Q12 [facility] PRN Reason: Protocol Last Admin: 05/22/18 08:36 Dose: 166.667 mls/hr Meropenem 1 gm/ Sodium (Chloride) 100 mls @ 100 mls/hr IVPB Q8@0435,1235,2035 [facility] [place] PRN Reason: Protocol Last Admin: 05/22/18 05:14 Dose: 100 mls/hr Oxycodone HCl (Oxycodone Immediate Release Tab) 10 mg PO Q4 PRN PRN Reason: Pain, moderate (4-7) Last Admin: 05/21/18 18:03 Dose: 10 mg Oxycodone HCl (Oxycontin Extended Release Tab) 10 mg PO Q12 [facility] Stop: 05/23/18 21:01 Last Admin: 05/22/18 08:41 Dose: 10 mg Sennosides (Senokot Tab) 17.2 mg PO HS [facility] Last Admin: 05/21/18 21:36 Dose: 17.2 mg - Labs Labs: 05/22/18 04:45 05/22/18 04:45 PT 13.8 Seconds (9.8-13.1) H 05/19/18 13:16 INR 1.2 (0.9-1.2) 05/19/18 13:16 APTT 40.1 Seconds (25.6-37.1) H 05/19/18 13:16 - Back Exam Additional comments: 10cc bilateral drains overnight, scant drainage in drains today, pulled. Incision intact, dry, no erythema. no active drainage from RANDY sites. Patient walking around room, sensation intact BLE. calves soft NT neg homans, +ROM ankle /toes/knees Assessment and Plan (1) Lumbar discitis Assessment & Plan: POD#2 s/p L2/L3 lami/fusion, biopsy -cx neg x 24 hours, no fungal elements and afb smear neg path report appreciated awaiting TLSO plan d/c after brace cont antibiotics per ID f/u Dr. Fitzpatrick and Dr. Head 1-2 weeks call for appointment d/w Dr. Fitzpatrick, agrees with above Status: Acute (2) Osteomyelitis of lumbar vertebra Status: Acute (3) Spinal stenosis of lumbar region Status: Acute
--- NOTE | 2018-05-22 12:52 | CP.PCM.PN ---
Subjective - Date & Time of Evaluation Date of Evaluation: 05/22/18 Time of Evaluation: 08:00 - Subjective Subjective: LESS PAIN NO FEVER ALERT OOB NAD Objective - Vital Signs/Intake and Output Vital Signs (last 24 hours): Temp Pulse Resp BP Pulse Ox 98.4 F 93 H 20 127/81 98 05/22/18 08:00 05/22/18 08:00 05/22/18 08:00 05/22/18 08:00 05/22/18 08:00 Intake and Output: 05/22/18 05/22/18 06:59 18:59 Intake Total 1050 Output Total 75 Balance 975 - Medications Medications: Current Medications Acetaminophen (Tylenol 325mg Tab) 975 mg PO Q6 [facility] Last Admin: 05/22/18 09:52 Dose: 975 mg Cyclobenzaprine HCl (Flexeril) 5 mg PO TID [facility] Last Admin: 05/22/18 12:23 Dose: 5 mg Docusate Sodium (Colace) 100 mg PO BID [facility] Last Admin: 05/22/18 08:34 Dose: 100 mg Gabapentin (Neurontin) 300 mg PO BID [facility] Last Admin: 05/22/18 08:35 Dose: 300 mg Sodium Chloride (Sodium Chloride 0.9%) 1,000 mls @ 100 mls/hr IV .Q10H PRN PRN Reason: Hypotension Last Admin: 05/20/18 17:47 Dose: 100 mls/hr Vancomycin HCl 1 gm/ Sodium (Chloride) 250 mls @ 166.667 mls/hr IVPB Q12 [facility] PRN Reason: Protocol Last Admin: 05/22/18 08:36 Dose: 166.667 mls/hr Ertapenem 1 gm/ Sodium (Chloride) 100 mls @ 100 mls/hr IVPB DAILY [facility] PRN Reason: Protocol Oxycodone HCl (Oxycodone Immediate Release Tab) 10 mg PO Q4 PRN PRN Reason: Pain, moderate (4-7) Last Admin: 05/21/18 18:03 Dose: 10 mg Oxycodone HCl (Oxycontin Extended Release Tab) 10 mg PO Q12 [facility] Stop: 05/23/18 21:01 Last Admin: 05/22/18 08:41 Dose: 10 mg Sennosides (Senokot Tab) 17.2 mg PO [facility] Last Admin: 05/21/18 21:36 Dose: 17.2 mg - Labs Labs: 05/22/18 04:45 05/22/18 04:45 PT 13.8 Seconds (9.8-13.1) H 05/19/18 13:16 INR 1.2 (0.9-1.2) 05/19/18 13:16 APTT 40.1 Seconds (25.6-37.1) H 05/19/18 13:16 - Constitutional Appears: Non-toxic, Chronically Ill - Head Exam Head Exam: NORMOCEPHALIC - Eye Exam Eye Exam: PERRL Pupil Exam: NORMAL ACCOMODATION - ENT Exam ENT Exam: Mucous Membranes Dry - Neck Exam Neck Exam: absent: Lymphadenopathy - Respiratory Exam Respiratory Exam: Decreased Breath Sounds - Cardiovascular Exam Cardiovascular Exam: REGULAR RHYTHM - GI/Abdominal Exam GI & Abdominal Exam: Distended - Rectal Exam Rectal Exam: Deferred - Exam Exam: NORMAL INSPECTION - Extremities Exam Extremities Exam: absent: Pedal Edema - Back Exam Back Exam: absent: CVA tenderness (L), CVA tenderness (R) - Neurological Exam Neurological Exam: Alert, Awake, Oriented x3 Neuro motor strength exam: Left Upper Extremity: 4, Right Upper Extremity: 4, Left Lower Extremity: 4, Right Lower Extremity: 4 - Psychiatric Exam Psychiatric exam: Normal Mood Assessment and Plan (1) Intractable back pain Status: Acute (2) Lumbar discitis Status: Acute (3) Osteomyelitis of lumbar vertebra Status: Acute - Assessment and Plan (Free Text) Assessment: S/P DISKECTOMY/ FUSION IV ANTIBOTICS TO CONT PT/OT OUT PT
[2018-05-22 13:00] VITALS: BP 113/79; PULSE 82; RESP 18; TEMP 98; O2SAT 99
--- NOTE | 2018-05-23 00:09 | CP.PCM.DIS ---
Provider - Provider Date of Admission: 05/19/18 12:39 Attending physician: Toni Triana MD Primary care physician: Dr. Alberto Tran Consults: Dr. Fitzpatrick, Dr. Head Time Spent in preparation of Discharge (in minutes): 30 Diagnosis - Discharge Diagnosis (1) Intractable back pain Status: Resolved Priority: Medium (2) Lumbar discitis Status: Acute Priority: Medium (3) Osteomyelitis of lumbar vertebra Status: Resolved Priority: Low Hospital Course - Lab Results Lab Results: Micro Results 05/20/18 11:21 Back Gram Stain - Final 05/20/18 11:21 Back Wound Culture - Preliminary No growth. 05/20/18 11:21 Back Gram Stain - Final 05/20/18 11:21 Back Wound Culture - Preliminary No growth. 05/20/18 11:21 Back Gram Stain - Final 05/20/18 11:21 Back Wound Culture - Preliminary No growth. 05/20/18 11:21 Other: Please Indicate Mycobacterial Culture - Preliminary 05/20/18 11:21 Back Fungal Smear - Final Most Recent Lab Values WBC 8.0 K/uL (4.8-10.8) 05/22/18 04:45 RBC 4.14 Mil/uL (4.40-5.90) L 05/22/18 04:45 Hgb 12.0 g/dL (12.0-18.0) 05/22/18 04:45 Hct 37.3 % (35.0-51.0) 05/22/18 04:45 MCV 90.0 fl (80.0-94.0) 05/22/18 04:45 MCH 28.9 pg (27.0-31.0) 05/22/18 04:45 MCHC 32.1 g/dL (33.0-37.0) L 05/22/18 04:45 RDW 15.0 % (11.5-14.5) H 05/22/18 04:45 Plt Count 194 K/uL (130-400) 05/22/18 04:45 MPV 8.7 fl (7.2-11.7) 05/19/18 13:16 Neut % (Auto) 75.0 % (50.0-75.0) 05/19/18 13:16 Lymph % (Auto) 11.8 % (20.0-40.0) L 05/19/18 13:16 [place] % (Auto) 10.7 % (0.0-10.0) H 05/19/18 13:16 Eos % (Auto) 1.8 % (0.0-4.0) 05/19/18 13:16 Baso % (Auto) 0.7 % (0.0-2.0) 05/19/18 13:16 Neut # (Auto) 6.1 K/uL (1.8-7.0) 05/19/18 13:16 Lymph # (Auto) 1.0 K/uL (1.0-4.3) 05/19/18 13:16 [place] # (Auto) 0.9 K/uL (0.0-0.8) H 05/19/18 13:16 Eos # (Auto) 0.1 K/uL (0.0-0.7) 05/19/18 13:16 Baso # (Auto) 0.1 K/uL (0.0-0.2) 05/19/18 13:16 ESR 11 mm/hr (0-20) 05/20/18 11:57 PT 13.8 Seconds (9.8-13.1) H 05/19/18 13:16 INR 1.2 (0.9-1.2) 05/19/18 13:16 APTT 40.1 Seconds (25.6-37.1) H 05/19/18 13:16 Sodium 138 mmol/l (132-148) 05/22/18 04:45 Potassium 3.7 MMOL/L (3.6-5.0) 05/22/18 04:45 Chloride 102 mmol/L (98-107) 05/22/18 04:45 Carbon Dioxide 32 mmol/L (22-30) H 05/22/18 04:45 Anion Gap 8 (10-20) L 05/22/18 04:45 BUN 10 mg/dl (9-20) 05/22/18 04:45 Creatinine 0.8 mg/dl (0.8-1.5) 05/22/18 04:45 Est GFR ( Amer) > 60 05/22/18 04:45 Est GFR (Non-Af Amer) > 60 05/22/18 04:45 Random Glucose 88 mg/dL (75-110) 05/22/18 04:45 Calcium 8.8 mg/dL (8.4-10.2) 05/22/18 04:45 Total Bilirubin 0.7 mg/dl (0.2-1.3) 05/19/18 13:16 AST 43 U/L (17-59) 05/19/18 13:16 ALT 47 U/L (21-72) 05/19/18 13:16 Alkaline Phosphatase 85 U/L (38-126) 05/19/18 13:16 C-Reactive Protein < 5.00 mg/L (0.0-9.9) 05/20/18 11:57 Total Protein 7.4 G/DL (6.3-8.2) 05/19/18 13:16 Albumin 4.2 g/dL (3.5-5.0) 05/19/18 13:16 Globulin 3.2 gm/dL (2.2-3.9) 05/19/18 13:16 Albumin/Globulin Ratio 1.3 (1.0-2.1) 05/19/18 13:16 Urine Color Straw (YELLOW) 05/19/18 13:45 Urine Clarity Clear (Clear) 05/19/18 13:45 Urine pH 7.0 (5.0-8.0) 05/19/18 13:45 Ur Specific [place] 1.008 (1.003-1.030) 05/19/18 13:45 Urine Protein 30 mg/dL (NEGATIVE) 05/19/18 13:45 Urine Glucose (UA) Neg mg/dL (Normal) 05/19/18 13:45 Urine Ketones Negative mg/dL (NEGATIVE) 05/19/18 13:45 Urine Blood Negative (NEGATIVE) 05/19/18 13:45 Urine Nitrate Negative (NEGATIVE) 05/19/18 13:45 Urine Bilirubin Negative (NEGATIVE) 05/19/18 13:45 Urine Urobilinogen 0.2-1.0 mg/dL (0.2-1.0) 05/19/18 13:45 Ur Leukocyte Esterase Neg [place]/uL (Negative) 05/19/18 13:45 Urine RBC (Auto) 2 /hpf (0-3) 05/19/18 13:45 Urine Microscopic WBC < 1 /hpf (0-5) 05/19/18 13:45 Urine Bacteria Few (<OCC) H 05/19/18 13:45 Vancomycin Trough 20.6 ug/mL (5.0-10.0) H 05/22/18 04:45 Blood Type A POSITIVE 05/19/18 13:48 Blood Type Confirm A POSITIVE 05/19/18 13:58 Antibody Screen Negative 05/19/18 13:48 BBK History Checked No verified bt 05/19/18 13:48 - Hospital Course Hospital Course: 52 yr old M is POD # 2 s/p L2-L3 posterior lumbar fusion, decompression laminectomy admitted for intractable lumbar pain in the setting of osteomyelitis , epidural abscess, lumbar discitis. Patient tolerated procedure well, tolerated PT, pain was controlled. Patient was discharged stable with instructions to use TLSO brace, follow up with Dr. Fitzpatrick, Dr. Head and PMD within 1 week. Will continue IV antibiotics as outpatient, set up at [facility]. - Date & Time of H&P Date of H&P: 05/19/18 Time of H&P: 15:00 Discharge Exam - Head Exam Head Exam: NORMOCEPHALIC - Eye Exam Eye Exam: Normal appearance - ENT Exam ENT Exam: Mucous Membranes Moist - Neck Exam Neck exam: Full Rom - Respiratory Exam Respiratory Exam: NORMAL BREATHING PATTERN - Cardiovascular Exam Cardiovascular Exam: REGULAR RHYTHM - GI/Abdominal Exam GI & Abdominal Exam: Normal Bowel Sounds, Soft - Extremities Exam Extremities exam: full ROM - Neurological Exam Neurological exam: Alert, CN II-XII Intact - Psychiatric Exam Psychiatric exam: Normal Affect, Normal Mood - Skin Skin Exam: Dry, Warm Discharge Plan - Discharge Medications Prescriptions: Docusate [Colace] 100 mg PO BID #30 cap Ertapenem 1gm in NS 50ml [Invanz] 1 gm IV DAILY #21 bag oxyCODONE/Acetaminophen [Percocet 5/325 mg Tab] 1 ea PO Q6 PRN #20 tab PRN Reason: Pain, Moderate (4-7) Telavancin Hydrochloride [Vibativ] 1,000 mg IV DAILY #21 pds - Follow Up Plan Condition: FAIR Disposition: HOME/ ROUTINE Instructions: Osteomyelitis (DC), Laminectomy (DC), Postspine Surgery Precautions Additional Instructions: follow up with in 2 weeks follow up with in 1-2 week follow up tomorrow at [facility] outpatient infusion center please go to registration then go to 3 tower for infusion. keep picc line dressing dry and clean. Referrals: Frantz Fitzpatrick MD [Staff Provider] - Vaughn Head MD [Staff Provider] - Alberto Tran MD [Family Provider] -
== END 2018-05-22 15:40 | disposition home or self-care (01) | DRG 456 ==
LOC: H.ER 11:42 → H.ERHOLD 12:39 → H.MEDSURG1 16:20 → H.TEL 05-20 12:54
PROVIDERS: ADMIT Family Medicine; ATTEND Family Medicine
PROC: 0SG00Z1 (ICD-10-PCS; 2018-05-20)
PROC: 0SG00K1 Fusion of Lumbar Vertebral Joint with Nonautologous Tissue Substitute, Posterior Approach, Posterior Column, Open Approach (ICD-10-PCS; 2018-05-20)
PROC: 0SB20ZX Excision of Lumbar Vertebral Disc, Open Approach, Diagnostic (ICD-10-PCS; principal; 2018-05-20 07:45)
DX: M46.26 Osteomyelitis of vertebra, lumbar region (principal); G06.1 Intraspinal abscess and granuloma; M46.46 Discitis, unspecified, lumbar region; M48.061 Spinal stenosis, lumbar region without neurogenic claudication; M43.16 Spondylolisthesis, lumbar region